=== PATIENT | female | born 1985 | race American Indian/Alaskan Native ===

== ENCOUNTER 2016-11-05 06:58 | Emergency (ER) | payer BC, MEDICAID ==
[2016-11-05 08:08] LABS: Basophils % (Auto) 0.2 % (0.0-1.8); Hematocrit 37.8 % (30.3-42.9); Hemoglobin 12.6 gm/dl (10.1-14.3); Mean Corpuscular HGB Conc 33 % (30-34); Mean Corpuscular Hemoglobin 30 pg (28-32); Mean Corpuscular Volume 89 fl (79-97); Platelet Count 217 K/mm3 (140-440); Red Blood Count 4.26 M/mm3 (3.65-5.03); Red Cell Distribution Width 13.1 % (13.2-15.2)
[2016-11-05 08:25] LABS: Alanine Aminotransferase 11 units/L (7-56); Albumin 3.9 g/dL (3.9-5); Albumin/Globulin Ratio 1.1 %; Alkaline Phosphatase 49 units/L (35-129); Anion Gap 20 mmol/L; BUN/Creatinine Ratio 13.33; Blood Urea Nitrogen 8 mg/dL (7-17); Carbon Dioxide 20 mmol/L (22-30); Chloride 101.3 mmol/L (98-107); Glucose 100 mg/dL (65-100); Lipase 11 units/L (13-60); Potassium 3.8 mmol/L (3.6-5.0); Sodium 137 mmol/L (137-145); Total Protein 7.5 g/dL (6.3-8.2)
[2016-11-05 08:44] LABS: Bilirubin,Urine NEG (Negative); Blood,Urine SM (Negative); Ketones,Urine TR mg/dL (Negative); Leukocyte Esterase,Urine NEG (Negative); Mucus,Urine 3+ /HPF; Nitrite,Urine NEG (Negative)
[2016-11-05] MEDS ORDERED: NACL 0.9% 1000 ML 1,000 ML IV ONE (12:20)
[2016-11-05] MEDS ORDERED: ZOFRAN IV ONE (12:20)
[2016-11-05 12:21] VITALS: BP 111/57
[2016-11-05] MEDS ORDERED: TYLENOL PO ONE (12:23)
--- NOTE | 2016-11-05 12:23 | Emergency Department Report ---
ED Abdominal Pain HPI - General Chief Complaint: Abdominal Pain Stated Complaint: BODY CHILLS, VOMITTING, MICHELE, NAUSEA Time Seen by Provider: 11/05/16 12:08 Source: patient Mode of arrival: Ambulatory Limitations: No Limitations - History of Present Illness Initial Comments: Patient is 31 years old female was no significant past medical history came today was fever of 102 and abdominal pain nausea vomiting for the last 2 days patient denied any diarrhea, she described her pain as crampy in nature. MD Complaint: abdominal pain -: Last night Location: periumbilical Radiation: suprapubic Quality: cramping Associated Symptoms: nausea, vomiting, fever, chills. denies: diarrhea, constipation, dysuria, hematemesis, hematochezia, melena, hematuria, anorexia - Related Data Previous Rx's Medication Instructions Recorded Last Taken Type Ondansetron [Zofran Odt] 8 mg PO Q6H #20 tab.rapdis 03/17/13 Unknown Rx Pyridoxine [Vitamin B-6] 50 mg PO DAILY #20 tablet 03/17/13 Unknown Rx Acetaminophen/Codeine [Tylenol #3] 1 tab PO BID PRN #10 tab 05/27/14 Unknown Rx Sulfamethoxazole/Trimethoprim 1 each PO BID #20 tablet 05/27/14 Unknown Rx [Bactrim Ds] Ondansetron [Zofran Odt] 4 mg PO Q8HR PRN #14 tab.rapdis 11/05/16 Unknown Rx Allergies Allergy/AdvReac Type Severity Reaction Status Date / Time amoxicillin Allergy Swelling Verified 05/27/14 10:52 amoxicillin trihydrate Allergy Swelling Verified 03/16/13 22:43 [From Amoxil] azithromycin [From Zithromax] Allergy Swelling Verified 03/16/13 22:43 vancomycin Allergy Vomiting Verified 05/27/14 10:52 ED Review of Systems ROS: Stated complaint: BODY CHILLS, VOMITTING, MICHELE, NAUSEA Other details as noted in HPI Comment: All other systems reviewed and negative Constitutional: chills, fever ENT: denies: throat pain, hearing loss Respiratory: denies: cough, orthopnea, shortness of breath, SOB with exertion, SOB at rest Cardiovascular: palpitations. denies: chest pain, dyspnea on exertion, orthopnea Gastrointestinal: abdominal pain, nausea, vomiting. denies: diarrhea, constipation, hematemesis, melena, hematochezia Genitourinary: denies: urgency, dysuria, frequency Musculoskeletal: denies: back pain Neurological: denies: headache ED Past Medical Hx - Past Medical History Additional medical history: preclampsia in previous - Surgical History Additional Surgical History: tubal - Social History Smoking Status: Never Smoker Substance Use Type: None - Medications Home Medications: Home Medications Medication Instructions Recorded Confirmed Last Taken Type Ondansetron [Zofran Odt] 8 mg PO Q6H #20 tab.rapdis 03/17/13 Unknown Rx Pyridoxine [Vitamin B-6] 50 mg PO DAILY #20 tablet 03/17/13 Unknown Rx Acetaminophen/Codeine [Tylenol #3] 1 tab PO BID PRN #10 tab 05/27/14 Unknown Rx Sulfamethoxazole/Trimethoprim 1 each PO BID #20 tablet 05/27/14 Unknown Rx [Bactrim Ds] Ondansetron [Zofran Odt] 4 mg PO Q8HR PRN #14 tab.rapdis 11/05/16 Unknown Rx ED Physical Exam - General Limitations: No Limitations ED Course Vital Signs 11/05/16 11/05/16 11/05/16 07:41 11:48 11:50 Temperature 102.8 F H Pulse Rate 101 H Respiratory 20 Rate Blood Pressure 108/62 117/66 O2 Sat by Pulse 100 97 97 Oximetry 11/05/16 11/05/16 11/05/16 12:00 12:03 12:10 Temperature Pulse Rate Respiratory 16 Rate Blood Pressure 111/57 111/57 O2 Sat by Pulse 98 99 97 Oximetry 11/05/16 13:06 Temperature Pulse Rate Respiratory 16 Rate Blood Pressure O2 Sat by Pulse Oximetry - Reevaluation(s) Reevaluation #1: 11/05/16 14:19 Patient stated that she is feeling better however abdominal symptoms since gone fever came down after Tylenol. CT scan of the abdomen and pelvis came back unremarkable so does the blood work. I believe this is a viral syndrome, no evidence of acute appendicitis at this moment. Patient advised to always have primary care physician if her symptoms not improving she needed to come back to the ER. ED Medical Decision Making - Lab Data Result diagrams: 11/05/16 07:47 11/05/16 07:47 Critical care attestation.: If time is entered above; I have spent that time in minutes in the direct care of this critically ill patient, excluding procedure time. ED Disposition Clinical Impression: Abdominal pain, Fever Disposition: DC-01 TO HOME OR SELFCARE Is pt being admited?: No Condition: Stable Instructions: Abdominal Pain (ED) Referrals: DR ABEL [Other] - 3-5 Days
--- NOTE | 2016-11-05 13:43 | Cat Scan Report ---
CT SCAN OF THE ABDOMEN AND PELVIS WITH CONTRAST: HISTORY: Abdominal pain, fever. TECHNIQUE: Helical CT in 1.25mm intervals following IV contrast. Sagittal and coronal reconstructions. FINDINGS: The liver is normal in size and is without focal defect. No gallstones or biliary dilatation are noted. The spleen and pancreas demonstrate a normal size and attenuation with no evidence of abnormal mass. The kidneys are normal in size and position with no evidence of hydronephrosis or mass. The adrenal glands are normal. There is no intestinal obstruction or ascites. Normal appendix. The abdominal aorta is normal. The uterus and adnexa are within normal limits. Left ovarian vein varicosity is noted. There is no evidence of peritoneal air or fluid. There is no evidence of any abnormal masses or fluid collections within the pelvis. No adenopathy is identified. The bladder is normal. IMPRESSION: Unremarkable CT scan of the abdomen and pelvis with contrast. No acute process is detected.
== END 2016-11-05 15:19 | disposition home or self-care (01) ==
LOC: ED 06:58
DX: R10.33 Periumbilical pain (principal); R50.9 Fever, unspecified; Z88.1 Allergy status to other antibiotic agents
CPT/HCPCS: 36415; 74177; 80053; 81001; 83690; 84703; 85025; 96361; 96374; 99284; J2405; J7030; Q9967